=== PATIENT | female | born 1965 | race Caucasian/White ===

== ENCOUNTER → 2018-07-13 15:45 | Outpatient (CLI) | payer MEDICARE, SELFPAY ==
[2016-07-26 16:09] VITALS: BMI 19.7
[2018-07-18 11:31] LABS: HPV Reflexed? NOT INDICATED
--- OUTSIDE RECORDS SUMMARY | 2018-10-17 06:31 | XMS RPT_ITS ---
:1965 Author Organization [facility] Care Team Providers Name Role Phone MUNA GALAN II Attending Unavailable COOPERRIDVENUS LOAIZA, MUNA Serrano Attending Unavailable COOPERMUNA HERNANDEZ II Referring Unavailable SHAUNA SOUZA Attending Unavailable Rosi Bryant Attending Unavailable Rosi Bryant Referring Unavailable Ulises Conde Primary Care Unavailable PROBLEMS PROBLEMS DATE TYPE CONDITION / CODE ATTENDING STATUS SOURCE 07/13/2018 Unknown Z12.4 - Encounter Rosi Bryant Active [facility] for screening for [facility] neoplasm of Repository cervix / Z12.4(ICD-10) 02/12/2018 Active Encounter for COOPERRIDER II, Active [facility] general adult MUNA Serrano [facility] medical Repository examination without abnormal findings / Z00.00(ICD-10) PROCEDURES PROCEDURES No Procedure Records FoundRESULTS RESULTS PAP I-G W/RFX HRHPV Collected: 07/13/2018 Status: F Source: [facility] 3:00 PM [facility] REPOSITORY Order Comment: CYTOLOGY INFORMATION: - CLINICAL INFORMATION: - DATE LMP/MENOPAUSE: MENOPAUSE - COLLECTION VIAL: Thin Prep Vial - 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 of containers..01 ThinPrep Vial TYPE CODE TESTS RESULT OUT OF RANGE REFERENCE UNITS LAB L7400.0800 . Normal DIAGN Comment Result Comment: NEGATIVE FOR INTRAEPITHELIAL LESION AND MALIGNANCY. LAB L7400.0900 . Normal ADEQ Comment Result Comment: Satisfactory for evaluation. Endocervical and/or squamous metaplastic cells (endocervical component) are present. LAB L7400.1400 . Normal PERFORM Comment Result Comment: [facility] Rn LAB L7400.2575 . Normal TEST METHOD Comment Result Comment: This liquid based ThinPrep(R) pap test was screened with the use of an image guided system. LAB L7400.2600 . Normal . COMM LAB L7400.2700 . Normal PAPSMR Comment Result Comment: The Pap smear is a screening test designed to aid in the detection of premalignant and malignant conditions of the uterine cervix. It is not a diagnostic procedure and should not be used as the sole means of detecting cervical cancer. Both false-positive and false-negative reports do occur. LAB L7400.2800 . Normal HPV RFLX Comment Result Comment: The HPV DNA reflex criteria were not met with this specimen result therefore, no HPV testing was performed. Performed at: - [facility] [id number] Clinical Psychiatrist: Elena De La Vega MD, Phone: [phone] Performed By: #### L7400.0350 #### [facility] (refer to report for specific site) refer to report for address and phone number PROGRESS Observed: 05/07/2018 Status: COMPLETED Source: [place] 10:15 AM [facility] REPOSITORY O ID: [id number] Author: Muna Galan II Service: (none) Author Type: CHEF PASSENGER VESSEL Type: Progress Notes Filed: 05/07/2018 10:18 AM Note Text: ASSESSMENT/PLAN: 1. Regular astigmatism, bilateral - ICD9: 367.21, ICD10: H52.223 (primary diagnosis) 2. Presbyopia - ICD9: 367.4, ICD10: H52.4 New contreras selected for contacts and glasses. Will order new trial contacts and remake new glasses. Recheck as needed. I have confirmed and edited as necessary the relevant ophthalmic history, review of systems, surgical history, and ophthalmological examination findings as obtained by the ophthalmic technical staff. I have seen and examined Garett Jara. I have discussed the examination findings, diagnosis, and treatment options with the patient and/or the patient's family. I have also reviewed and agree with the assessment and plan as stated above and agree with all its relevant components. I gave the patient the opportunity to ask questions about the findings, diagnosis, and treatment options. Muna Galan, II, OD PROGRESS Observed: 02/12/2018 Status: COMPLETED Source: [place] 11:46 AM [facility] REPOSITORY O ID: [id number] Author: Muna Galan II Service: (none) Author Type: CHEF PASSENGER VESSEL Type: Progress Notes Filed: 02/12/2018 11:53 AM Note Text: ASSESSMENT/PLAN: 1. 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 Patient desires typing of RP with reported hearing loss (Usher's) and will help arrange appointment with appropriate doctor. 2. Pseudophakia - ICD9: V43.1, ICD10: Z96.1 Posterior chamber intraocular lenses are well positioned and clear. 3. Regular astigmatism, bilateral - ICD9: 367.21, ICD10: H52.223 4. Presbyopia - ICD9: 367.4, ICD10: H52.4 Recommend glasses to maximize visual performance. Patient also wishes to try contact lenses (used single contact left eye for distance) with use of readers over contact. Recheck fit in one week. I have confirmed and edited as necessary the relevant ophthalmic history, review of systems, surgical history, and ophthalmological examination findings as obtained by the ophthalmic technical staff. I have seen and examined Garett Jara. I have discussed the examination findings, diagnosis, and treatment options with the patient and/or the patient's family. I have also reviewed and agree with the assessment and plan as stated above and agree with all its relevant components. I gave the patient the opportunity to ask questions about the findings, diagnosis, and treatment options. Muna Galan, II, OD ALLERGIES ALLERGIES DATE TYPE / CODE NAME / CODE REACTION SEVERITY SOURCE 07/26/2016 Drug No Known Unknown [facility] Allergy/416 Allergies/T16217 Hospital 392927(SNOM 0388(RXNORM) Repository ED CT) Drug NO KNOWN [facility] Class/08574 ALLERGIES [place] 1003(SNOMED Repository CT) ENCOUNTERS ENCOUNTERS ADMIT/DISCHARGE ACCOUNT ADMITTING ENCOUNTER LOCATION SOURCE NUMBER CLASS 08/15/2018/08/15/19 [id number] Ambulatory [place] 19 [facility] [place] Repository 07/13/2018 [id number] Ambulatory [facility] ing:[facility] Repository 05/07/2018/05/08/20 [id number] Ambulatory [place] 18 [facility] [place] Repository 02/12/2018/02/14/20 [id number] Ambulatory [address] Repository PAYERS PAYERS ENCOUNTER GUARANTOR PAYER SUBSCRIBER SOURCE 07/13/2018 GARETT A Primary GARETT A Perrin [id number] Insurance:HUMANA VITALLODOB: [facility] MEDICARE [id number] Repository [place] [id number]: [id number] Date:[id number] BOX () [address] [place] [id number]: 07/13/2018 Secondary NOT GIVENUNK [place] Insurance:SELF PAY [facility] Number: Effective Repository Date:2018-07-13
== END ==
PROVIDERS: Family Provider Family Medicine; PCP Family Medicine; Referring Provider Obstetrics & Gynecology; Visit Provider Obstetrics & Gynecology
DX: Z12.4 Encounter for screening for malignant neoplasm of cervix (principal)
CPT/HCPCS: 88175; G0145

== ENCOUNTER → 2018-10-15 12:34 | Outpatient (CLI) | payer MEDICARE, SELFPAY ==
--- NOTE | 2018-10-15 12:40 | BI_ITS ---
MAMMOGRAPHY - BILATERAL SCREENING 3-D AKASH SYNTHESIS REASON FOR EXAM: Female, 52 years old. Bilateral Screening 3-D tomosynthesis PERTINENT HISTORY: Paternal grandmother and paternal aunt with breast cancer. TECHNIQUE: 2-D mammograms and 3-D Akash synthesis of the breast (s) were performed. CAD was performed. COMPARISON: September 26, 2007 FINDINGS: The breast composition is heterogeneously dense that can obscure small breast masses. Scattered benign calcifications are seen. No dense spiculated masses or suspicious microcalcifications are identified. No architectural distortion is identified. There is no skin thickening or retraction. There has been no significant change since the prior study. BI/SCREENING MAMM (CAD), BILAT IMPRESSION: No mammographic signs of malignancy. Routine yearly mammograms recommended. ASSESSMENT CATEGORY: BIRADS Category 2: Benign. A letter regarding these results will be sent to the patient by the facility within 30 days. FOLLOW UP RECOMMENDATION: Yearly follow up mammogram recommended. (A) Approximately 10% of breast cancers are not detected by mammography. A normal mammogram should not delay biopsy of a clinically suspicious abnormality. Electronically Signed: Matthew Figueroa MD at 13:41 EDT , Service support ,
== END ==
PROVIDERS: Family Provider Family Medicine; PCP Family Medicine; Visit Provider Obstetrics & Gynecology
DX: Z12.31 Encounter for screening mammogram for malignant neoplasm of breast (principal)
CPT/HCPCS: 77063; 77067